=== PATIENT | male | born 1945 | race Caucasian/White ===

== ENCOUNTER 2020-03-19 07:56 | Outpatient (CLI) | payer MEDICARE, SELFPAY ==
[2020-03-19 08:15] LABS: Hemoglobin 15.1 g/dL (14.0-18.0); Mean Corpuscular HGB Conc 33.6 g/dl (32-36); Mean Corpuscular Hemoglobin 30.9 pg (26-34); Mean Platelet Volume 10.3 fl (7.4-10.4); Platelet Count Result 207 k/mm3 (150-375); Red Blood Count 4.89 M/mm3 (4.6-6.20); Red Cell Distribution Width 12.9 % (11.5-14.5); White Blood Count 8.5 K/mm3 (4.5-10.0)
[2020-03-19 09:26] LABS: Alanine Aminotransferase 19 U/L (4-50); Albumin Level 4.1 g/dL (3.5-5.1); Alkaline Phosphatase 74 U/L (38-126); Anion Gap 5 mmol/L (8-16); Aspartate Amino Transferase 34 U/L (17-59); Bilirubin,Total 0.7 mg/dL (0.2-1.3); Blood Urea Nitrogen 14 mg/dL (9-20); Calcium 8.8 mg/dL (8.4-10.2); Carbon Dioxide 28 mmol/L (22-30); Chloride 106 mmol/L (98-107); Cholesterol 192 mg/dL (0-200); Estimated Glomerular Filt Rate 59; Glucose 105 mg/dL (75-110); HDL Direct 42 mg/dL; Potassium 4.3 mmol/L (3.4-5.0); Sodium 139 mmol/L (137-145); Triglycerides 77 mg/dL (<150)
[2020-03-19 09:40] LABS: LDL Cholesterol Direct 123 mg/dL
[2020-03-19 10:18] LABS: Prostate Specific Antigen 3.7 ng/mL (< OR = 4.0)
== END 2020-03-19 07:57 | disposition home or self-care (01) ==
LOC: ANHLAB 07:56
PROVIDERS: PCP Family Medicine; Visit Provider Physician Assistant Medical
DX: I10 Essential (primary) hypertension (principal); E03.9 Hypothyroidism, unspecified; Z12.5 Encounter for screening for malignant neoplasm of prostate; Z13.220 Encounter for screening for lipoid disorders; Z13.6 Encounter for screening for cardiovascular disorders
CPT/HCPCS: 36415; 80053; 80061; 84153; 84443; 85027; G0103

== ENCOUNTER 2020-05-06 13:21 | Outpatient (CLI) | payer MEDICARE, SELFPAY ==
[2020-05-06 14:29] LABS: Free T4 Free Thyroxine 0.99 ng/mL (0.78-2.19)
== END 2020-05-06 13:22 | disposition home or self-care (01) ==
PROVIDERS: PCP Family Medicine; Visit Provider Physician Assistant Medical
DX: E03.9 Hypothyroidism, unspecified (principal)
CPT/HCPCS: 36415; 84439; 84443

== ENCOUNTER 2020-06-17 15:04 | Outpatient (CLI) | payer MEDICARE, SELFPAY ==
[2020-06-17 16:20] LABS: Free T4 Free Thyroxine 1.17 ng/mL (0.78-2.19)
== END 2020-06-17 15:05 | disposition home or self-care (01) ==
LOC: ANHLAB 15:07
PROVIDERS: PCP Family Medicine; Visit Provider Physician Assistant Medical
DX: E03.9 Hypothyroidism, unspecified (principal)
CPT/HCPCS: 36415; 84439; 84443

== ENCOUNTER 2021-01-20 15:31 | Outpatient (CLI) | payer MEDICARE, SELFPAY ==
[2021-01-20 19:19] LABS: Free T4 Free Thyroxine 1.18 ng/mL (0.78-2.19)
== END 2021-01-20 15:32 | disposition home or self-care (01) ==
LOC: ANHLAB 15:33
PROVIDERS: PCP Family Medicine; Visit Provider Nurse Practitioner Family
DX: E03.9 Hypothyroidism, unspecified (principal); I47.1 Supraventricular tachycardia
CPT/HCPCS: 36415; 84439; 84443

== ENCOUNTER 2021-12-16 07:09 | Outpatient (CLI) | payer MEDICARE, SELFPAY ==
[2021-12-16 08:14] LABS: Alanine Aminotransferase 19 U/L (6-50); Alkaline Phosphatase 79 U/L (38-126); Anion Gap 3 mmol/L (8-16); Aspartate Amino Transferase 29 U/L (17-59); Bilirubin,Total 0.6 mg/dL (0.2-1.3); Blood Urea Nitrogen 18 mg/dL (9-20); Calcium 8.5 mg/dL (8.4-10.2); Carbon Dioxide 27 mmol/L (22-30); Chloride 110 mmol/L (98-107); Cholesterol 186 mg/dL (0-200); Estimated Glomerular Filt Rate > 60; Glucose 107 mg/dL (65-110); HDL Direct 46 mg/dL; Sodium 140 mmol/L (137-145); Triglycerides 62 mg/dL (<150)
[2021-12-16 08:25] LABS: LDL Cholesterol Direct 97 mg/dL
[2021-12-16 08:45] LABS: Prostate Specific Antigen 3.8 ng/mL (< OR = 4.0)
[2021-12-16 09:32] LABS: Free T4 Free Thyroxine 1.14 ng/mL (0.78-2.19)
== END 2021-12-16 07:10 | disposition home or self-care (01) ==
LOC: ANHLAB 07:12
PROVIDERS: PCP Family Medicine; Visit Provider Physician Assistant Medical
DX: E03.9 Hypothyroidism, unspecified (principal); I10 Essential (primary) hypertension; E78.5 Hyperlipidemia, unspecified; Z12.5 Encounter for screening for malignant neoplasm of prostate
CPT/HCPCS: 36415; 80053; 80061; 84153; 84439; 84443; G0103

== ENCOUNTER 2022-02-03 12:41 | Outpatient (CLI) | payer MEDICARE, SELFPAY ==
--- NOTE | ~2022-02-03 | US_ITS ---
US scrotum doppler INDICATION: Scrotal varices. History of epididymitis. TECHNIQUE: Testicular sonogram utilizing grayscale and color Doppler FINDINGS: The testes are normal in size and appearance. No focal lesions are seen. The right testes measures 3.6 x 4.8 x 2.6 cm centimeters, and the left testis measures 3.3 x 4.8 x 2 cm cm. There is n ormal vascular flow to both testes. The right and left epididymides appear normal. There is a right epididymal cyst measuring 5 mm. There is a left varicocele measuring 2.6 cm. IMPRESSION: 1. Left varicocele. 2: Right epididymal cyst measuring 5 mm. Reviewed, dictated and finalized at location A.
== END 2022-02-03 12:42 | disposition home or self-care (01) ==
LOC: ANHIMG 12:44
PROVIDERS: PCP Family Medicine; Visit Provider Nurse Practitioner Family
DX: I86.1 Scrotal varices (principal); N50.3 Cyst of epididymis; N50.819 Testicular pain, unspecified; N52.9 Male erectile dysfunction, unspecified
CPT/HCPCS: 76870; 93976

== ENCOUNTER 2022-03-30 07:47 | Outpatient (CLI) | payer MEDICARE, SELFPAY ==
--- NOTE | 2022-03-30 08:01 | ECG_ITS ---
Measurements Intervals [place] Rate: 63 P: 4 WA: 170 QRS: -6 QRSD: 108 T: 145 QT: 391 QTc: 400 Interpretive Statements SINUS RHYTHM LEFT VENTRICULAR HYPERTROPHY AND ST-T CHANGE [ T WAVE ABNORMALITY IN ANTEROLATERAL LEADS- CONSIDER ISCHEMIA ABNORMAL ECG COMPARED TO ECG 01/22/2019 10:05:02 HEART RATE HAS INCREASED LEFT VENTRICULAR HYPERTROPHY NOW PRESENT ST (T WAVE) DEVIATION NOW PRESENT Electronically Signed On 03-30-2022 8:46:15 CDT by Ethan Romano D.O.
== END 2022-03-30 07:48 | disposition home or self-care (01) ==
PROVIDERS: PCP Family Medicine; Visit Provider Urology
DX: Z01.818 Encounter for other preprocedural examination (principal); I11.0 Hypertensive heart disease with heart failure; I86.1 Scrotal varices; R94.31 Abnormal electrocardiogram [ECG] [EKG]; Z51.81 Encounter for therapeutic drug level monitoring; Z79.899 Other long term (current) drug therapy
CPT/HCPCS: 87086; 93005

== ENCOUNTER 2022-04-06 00:19 | Day surgery (SDC) | payer MEDICARE, SELFPAY ==
[2022-03-28 13:45] VITALS: BMI 29.7
--- NOTE | 2022-03-28 13:47 | PC.NURSE ---
Report to the Outpatient Waiting Room, entrance under the green pavilion located off [facility], at time _1230_ on date _[id number]_. OR Time: _230pm_. Time changes happen often and if your time is changed the preop area will call you the afternoon before. - You and your visitor will be asked to self-screen and do not enter if you have any COVID symptoms. - Only one visitor and NO children visitors are allowed at this time. - The patient visitor is requested to leave or wait in car when not with patient due to restrictions. - A mask is required within the hospital. Patients may have clear liquids (water, carbonated beverages, clear teas, apple juice) until 3 hours prior to surgery with a maximum of 20 ounces. - No food from midnight until time of surgery Take the following medications with a SIP of water the morning of surgery: ___Amlodipine, Doxazosin, Finasteride and Levothyroxine____ Medications to discontinue per physician None Date to take last dose Please no make-up, nail bangladeshi, hairspray, perfume, deodorant, or body powder the day of surgery. No jewelry (including any body piercings) or valuables the day of surgery, leave them at home. Please take a shower or bath the night before, or the morning of, surgery with an antibacterial soap. Wear comfortable, loose fitting clothing. - Jewelry must be removed prior to entering the operating room. Rings and piercings that are not removed may be cut off. - The hospital will not accept responsibility for valuables. - Please leave all valuables, including medications, at home the day of surgery. If you are going home after surgery, a licensed otr driver must drive you home. - NO public transportation without another adult. - We recommend that an adult stay with you for 24 hours following discharge. - We also recommend that you do not drive, make important decision, drink alcoholic beverages, or take any drugs that were not prescribed by your health care provider for at least 24 hours after your discharge time. Follow any additional instructions given to you from your surgeon. If you or anyone in your household have experienced Covid symptoms in the past week, please notify your surgeon or the nurse liaison at the phone number below for possible testing. Telephone instructions given to __Patient___and asked if any additional questions and then verbalized understanding. Patient advised to call surgeon office or pre surgery nurse liaison [phone] if any additional questions.
--- NOTE | 2022-04-05 16:14 | WPDANESEPPF ---
Anes - Initial Pre Proc Eval Procedure: Operation Date: 04/06/22 12:00 Proposed Procedures p Left Varicocele Ligation, - Tho Garibay MD s Flexible Cystoscopy - Tho Garibay MD Date/Time: 04/05/22 16:14 Surgeon: Tho Garibay MD Pre Op Diagnosis: left scrotal varices Patient Data Age: 76 Gender: M Height: 1.85 m Weight: 102.3 kg Allergies Allergy/AdvReac Type Severity Reaction Status Date / Time Sulfa (Sulfonamide Allergy Unknown Anaphylaxis Verified 04/06/22 10:33 Antibiotics) sulfanilamide Allergy Unknown Anaphylaxis Verified 04/06/22 10:33 Home Medications Medication Instructions Recorded Confirmed Type amlodipine 5 mg tablet 5 mg PO DAILY #90 tabs 10/31/21 04/06/22 Rx doxazosin 8 mg tablet 8 mg PO DAILY #90 tabs 10/31/21 04/06/22 Rx finasteride 5 mg tablet 5 mg PO DAILY #90 tabs 10/31/21 04/06/22 Rx levothyroxine 50 mcg tablet 50 mcg PO DAILY #90 tabs 01/26/22 04/06/22 Rx ECG: Date of Service: 03/30/22 Procedure(s): CA 12 lead EKG Accession Number(s): [id number] cc: ~ ? Measurements Intervals? [place]? Rate: ? 63 ? P:? 4 SD: ? 170? QRS:? -6 QRSD: ? 108? T:? 145 QT: ? 391? QTc:? 400? Interpretive Statements SINUS RHYTHM LEFT VENTRICULAR HYPERTROPHY AND ST-T CHANGE [ T WAVE ABNORMALITY IN ANTEROLATERAL LEADS- CONSIDER ISCHEMIA ABNORMAL ECG COMPARED TO ECG 01/22/2019 10:05:02 HEART RATE HAS INCREASED LEFT VENTRICULAR HYPERTROPHY NOW PRESENT ST (T WAVE) DEVIATION NOW PRESENT Electronically Signed On 03-30-2022 8:46:15 CDT by Ethan Romano D.O. Patient hx anesthesia problems: none Family hx anesthesia problems: none Results Review: All pre-operative results and documents have been reviewed as part of the pre-operative evaluation. [facility] Past Medical History Medical History (Updated 04/06/22 @ 10:39 by Catarino Mcgraw MD) BMI 29.0-29.9,adult Epididymitis Essential hypertension Overweight with body mass index (BMI) of 28 to 28.9 in adult Premature supraventricular beats PUD (peptic ulcer disease) Umbilical hernia without obstruction and without gangrene Family History Family History Father Hypertension Family history of diabetes mellitus in first degree relative Diabetes mellitus Acute myocardial infarction Malignant neoplasm of prostate Grandparent Carcinoma of colon Mother Family history of kidney disease Other Family history of arthritis Family history of cardiovascular disease Family history of heart disease in male family member before age 55 Social History Social History Smoking packs per day: 2 Smoking cigarettes per day: 40.0 Years smoked: 40 Smoking pack-years: 80.00 Smoking status: Former smoker Tobacco type: cigarettes, pipe and cigars Second hand tobacco smoke exposure: No Smoking end date: 03/28/07 Alcohol intake: current Living arrangements: with family Spiritual care concerns: No Anes - Eval Final PreProcedure Day of Procedure 04/05/22 16:14 Patient weight: obese Heart: regular rate and rhythm Lungs: clear to auscultation and normal air movement Airway: Mallampati scale class II Neurological: alert and oriented Last oral intake: >/= 8 hours ASA classification: III Emergent: no Anesthetic plan: proceed Anesthesia type and monitoring: general LMA Results Review: All pre-operative results and documents have been reviewed as part of the pre-operative evaluation. Informed Consent: The patient's anesthetic plan and its attendant risks and benefits were discussed with the patient/family/POA. Questions were geoffrey
[2022-04-06] VITALS (7 sets, daily range): BP systolic 120–151; BP diastolic 54–80; PULSE 52–67; RESP 10–16; TEMP 36.3–36.4; O2SAT 95–100
[2022-04-06] MEDS: ACETAMINOPHEN 500 MG TABLET 1000 MG PO (10:39)
[2022-04-06] MEDS: LACTATED RINGERS 1,000 ML 30 ML IV CONT ×2 (10:46→14:28)
--- NOTE | 2022-04-06 12:23 | WPDHPUPDATE1 ---
History and Physical Update Update Date/Time: 04/06/22 12:23 History and Physical has been reviewed, including an updated exam of the patient. There are NO changes in the patient's condition. Risks, benefits, and alternatives have been discussed and questions answered. Patient agrees to proceed with procedure.
[2022-04-06] MEDS: ceFAZolin 2 GM/D5W 50 ML 2 GM/50 ML BAG IVPB (12:37)
[2022-04-06] MEDS: BUPIVACAINE HCL 0.5% PF 30 ML VIAL INFILTRATE (14:15)
--- NOTE | 2022-04-06 14:29 | W.PM.PROC2 ---
Procedure Note - Detailed Date of Procedure 04/06/22 Pre-op Diagnosis left scrotal varices Urinary frequency Post-op Diagnosis Same Procedure Performed Left microsurgical varicocele ligation Cystoscopy Surgeon Tho Garibay MD Description of Procedure After informed consent was obtained, the patient was taken to the operating room and given preoperative IV antibiotics. He was induced with anesthesia. He was prepped and draped in a normal sterile fashion. A flexible cystoscope was inserted through the urethra into the bladder. 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 The bladder did have trabeculation. There were no tumors noted. Adjacent to the left ureteral orifice there was an area that appeared to be erythema, however with flattening of the area with the scope this appeared to be a blood vessel adjacent to the ureteral orifice and therefore biopsy not performed. Bladder was then emptied with a red rubber catheter. We made a 3 cm incision over the left external ring. We then bluntly dissected down and identified the spermatic cord and it was delivered through the incision. We then brought up testicle through the incision. The testicle was normal in appearance. We identified multiple gubernacular vessels that were cauterized and ligated. We then returned the testicle to its orthotopic position. We placed the spermatic cord on the operating platform, brought in the operating microscope, and performed operation using 8 to 16 times magnification throughout the case. The external and internal cremasteric fascia were opened. We identified multiple dilated veins. Varicocele veins were identified and duly ligated with titanium hemoclips and 4-0 silk ties. We identified the vas deferens and its surrounding vasculature, veins were ligated and the artery was not injured. The patient did have multiple cremasteric vessels, cremasteric veins were ligated with titanium clips and cremasteric arteries were preserved. We inspected carefully and there were no residual varicocele veins present. We confirmed Doppler flow through arteries with a microscopic Doppler. A total of 9-10 varicocele veins were identified and ligated. We then returned the spermatic cord to the orthotopic position. We irrigated copiously and injected Marcaine. We closed Lindsay?s and deep dermal layer with 3-0 Vicryl suture. We closed the skin with a 4-0 Monocryl subcuticular closure. Surgical glue and scrotal supporter placed. The patient was awakened and taken to the recovery room in stable condition. Estimated Blood Loss 5 Complications No immediate complications Condition Stable Disposition PACU
== END 2022-04-06 16:25 | disposition home or self-care (01) ==
PROVIDERS: PCP Family Medicine; Visit Provider Urology
PROC: (CPT 55530; principal; 2022-04-06 12:00)
PROC: 0TJB8ZZ Inspection of Bladder, Via Natural or Artificial Opening Endoscopic (ICD-10-PCS; CPT 52000; 2022-04-06 12:00)
DX: I86.1 Scrotal varices (principal); R35.0 Frequency of micturition; N40.0 Benign prostatic hyperplasia without lower urinary tract symptoms; N32.89 Other specified disorders of bladder; I10 Essential (primary) hypertension; I49.3 Ventricular premature depolarization; K27.9 Peptic ulcer, site unspecified, unspecified as acute or chronic, without hemorrhage or perforation; Z87.891 Personal history of nicotine dependence; E66.9 Obesity, unspecified; Z68.29 Body mass index [BMI] 29.0-29.9, adult
CPT/HCPCS: 55530; 52000; A9270; C1713; J0690; J1100; J2405; J2440; J2704; J3010; J7030; J7120

== ENCOUNTER 2022-08-31 07:49 | Day surgery (SDC) | payer MEDICARE, SELFPAY ==
[2022-08-24 13:39] VITALS: BMI 30.2
--- NOTE | 2022-08-31 09:00 | WPDHPUPDATE1 ---
History and Physical Update Update Date/Time: 08/31/22 09:00 History and Physical has been reviewed, including an updated exam of the patient. There are NO changes in the patient's condition. Risks, benefits, and alternatives have been discussed and questions answered. Patient agrees to proceed with procedure.
[2022-08-31 11:38] VITALS: BP 163/104; PULSE 58; RESP 16; O2SAT 97
[2022-08-31] MEDS: TETRACAINE HCL 0.5% OPHTH SOLN 4 ML BTL 1 DROP AFFCTD EYE ×3 (11:41→11:51)
[2022-08-31] MEDS: BRIMONIDINE TARTRATE 0.2% OP SOLN 5 ML BTL 1 DROP AFFCTD EYE (12:02)
--- NOTE | 2022-08-31 12:59 | W.PM.PROC2 ---
Procedure Note - Detailed Date of Procedure 08/31/22 Pre-op Diagnosis Posterior Capsular Opacification-Right Eye Post-op Diagnosis Same Procedure Performed YAG Laser Capsulotomy [RIGHT] eye Surgeon Cristian King MD Anesthesia Other (Topical) Description of Procedure After appropriate discussion, consent and topical anesthesia, the patient was placed in front of the laser. All settings were checked. The laser procedure was then performed. The patient tolerated the procedure well. Power Level: [4.0] Number of Pulses: 12 Complications None Condition Stable Disposition Same day
== END 2022-08-31 12:14 | disposition home or self-care (01) ==
PROVIDERS: Visit Provider Student in an Organized Health Care Education/Training Program
PROC: (CPT 66821; principal; 2022-08-31 11:45)
DX: H26.491 Other secondary cataract, right eye (principal)
CPT/HCPCS: 66821

== ENCOUNTER 2023-05-30 07:15 | Outpatient (CLI) | payer MEDICARE, SELFPAY ==
[2023-05-30 07:47] LABS: Basophils Percent Auto 0.5 % (0.2-1.2); Eosinophils Absolute Auto 0.3 K/mm3 (0-0.3); Eosinophils Percent Auto 4.3 % (0-4.4); Hematocrit 45.1 % (42.0-52.0); Hemoglobin 14.9 g/dL (14.0-18.0); Immature Granulocyte Absolute 0.02 K/mm3 (0.00-0.031); Immature Granulocyte Percent A 0.3 % (0-0.5); Lymphocytes Absolute Auto 1.48 K/mm3 (0.9-3.2); Lymphocytes Percent Auto 23.8 % (18.3-44.2); Mean Corpuscular Hemoglobin 31.4 pg (26-34); Mean Corpuscular Volume 95.1 fl (80-100); Mean Platelet Volume 10.6 fl (7.4-10.4); Monocytes Absolute Auto 0.7 K/mm3 (0.1-0.6); Monocytes Percent Auto 10.9 % (2.6-8.5); Neutrophils Absolute Auto 3.8 K/mm3 (1.3-6.7); Neutrophils Percent Auto 60.2 % (45.5-73.1); Platelet Count Result 186 k/mm3 (150-375); Red Blood Count 4.74 M/mm3 (4.6-6.20); Red Cell Distribution Width 13.1 % (11.5-14.5); White Blood Count 6.2 K/mm3 (4.5-10.0)
[2023-05-30 08:07] LABS: Alanine Aminotransferase 20 U/L (6-50); Albumin Level 4.2 g/dL (3.5-5.1); Alkaline Phosphatase 74 U/L (38-126); Anion Gap 9 mmol/L (8-16); Aspartate Amino Transferase 29 U/L (17-59); Bilirubin,Total 0.5 mg/dL (0.2-1.3); Blood Urea Nitrogen 23 mg/dL (9-20); Calcium 8.8 mg/dL (8.4-10.2); Carbon Dioxide 26 mmol/L (22-30); Chloride 107 mmol/L (98-107); Cholesterol 195 mg/dL (0-200); Estimated Glomerular Filt Rate > 60; Glucose 107 mg/dL (65-110); HDL Direct 49 mg/dL; Potassium 4.2 mmol/L (3.4-5.0); Sodium 142 mmol/L (137-145); Triglycerides 51 mg/dL (<150)
[2023-05-30 08:18] LABS: LDL Cholesterol Direct 111 mg/dL
[2023-05-30 08:27] LABS: Prostate Specific Antigen 4.6 ng/mL (< OR = 4.0)
== END 2023-05-30 07:16 | disposition home or self-care (01) ==
PROVIDERS: PCP Family Medicine; Visit Provider Physician Assistant Medical
DX: Z12.5 Encounter for screening for malignant neoplasm of prostate (principal); I10 Essential (primary) hypertension; E03.9 Hypothyroidism, unspecified; E78.5 Hyperlipidemia, unspecified
CPT/HCPCS: 36415; 80053; 80061; 84153; 84443; 85025; G0103

== ENCOUNTER 2024-09-12 08:27 | Outpatient (CLI) | payer MEDICARE, SELFPAY ==
--- OUTSIDE RECORDS SUMMARY | 2024-09-12 08:45 | XMS_ITS | Clinical Summary ---
Author Organization [facility] Address [address] [place] [address] Care Team Providers Care Mud Mixer Operator Name Role Phone Unavailable Primary Care Provider Unavailabl e Immunizations Immunization Administration Dates Next Due Covid-19, Mrna, Lnp-s, Pf, 30 Mcg/0.3 Ml Dose (P fizer) 04/05/2021 Social History Tobacco Use Types Packs/Day Years Used Date Smoking Tobacco: Never Assessed Sex and Gender Information Value Date Recorded Sex Assigned at Not on file Legal Sex Male 12:04 PM CDT Gender Identity Not on file Sexual Orientation Not on file Plan of Treatment Health Maintenance Due Date Last Done Comments Hepatitis C Virus (HCV) Screening 1945 Zoster Immunization (2 of 3) 08/18/2015 06/23/2015 Respiratory Syncytial Virus (RSV) Immunization (Adult) (1 - 1-dose 75+ series) 2019 Pneumococcal Immunization (50+ years) (2 of 2 - PPSV23) 12/27/2019 12/26/2018 Influenza Immunization (#1) 03/10/202402/08, 05/15/2019, 04/18/2018, Additional history exists SARS-COV-2 Immunization ( season) 2024 04/05/2021, 09/22/2020, 09/01/2020 DTaP/Tdap/Td Immunization Discontinued 01/03/2019 TdaP Immunization Completed 01/03/2019 Hepatitis B Immunization Aged Out No longer eligible based on patient's age to complete this topic Meningococcal Immunization (ACWY) Aged Out No longer eligible based on patient's age to complete this topic Rotavirus Immunization Aged Out No lo nger eligible based on patient's age to complete this topic
--- OUTSIDE RECORDS SUMMARY | 2024-09-12 08:45 | XMS_ITS | Clinical Summary ---
Author Organization [facility] Address [address] [place] [id number] Care Team Providers Care Application Trainer Name Role Phone Unavailable Primary Care Provider Unavailabl e Social History Tobacco Use Types Packs/Day Years Used Date Smoking Tobacco: Never Assessed Sex and Gender Information Value Date Recorded Sex Assigned at Not on file Legal Sex Male 4:38 PM CDT Gender Identity Not on file Sexual Orientation Not on file Last Filed Vital Signs Vital Sign Reading Time Taken Comments Blood Pressure 146/82 01/20/2014 9:00 AM CDT Pulse - - Temperature - - Respiratory Rate - - Oxygen Saturation - - Inhaled Oxygen Concentration - - Weight 101.6 kg (224 lb) 01/20/2014 9:00 AM CDT Height 185.4 cm (6' 1 ) 01/20/2014 9:00 AM CDT Body Mass Index 29.55 01/20/2014 9:00 AM CDT Plan of Treatment Health Maintenance Due Date Last Done Comments Hepatitis C 1963 DTaP, Tdap and Td Vaccines ( 1 - Tdap) 1963 Zoster Vaccines (1 of 2) 1994 Pneumococcal Vaccine: 65+ Ye ars (1 of 1 - PCV) 2009 RSV Immunization or 60+ Years (1 - 1-dose 75+ series) 2019 COVID-19 Vaccine (2023-2 5 season) 2024 Influenza Adult (#1) 2024 Colorectal Cancer Screening Colonoscopy (10 Years) Discontinued 10/08/2008 Meningococcal B Vaccine Aged Out No l onger eligible based on patient's age to complete this topic Meningococcal Vaccine Aged Out No emilie irma eligible based on patient's age to complete this topic RSV Immunizations Under 20 Months Aged Out No longer eligible based on patient's age to complete this topic Procedures Procedure Name Priority Date/Time Associated Diagnosis Comments COLONOSCOPY Routine 10/08/2008 12:00 AM CDT from Last 3 Months or Most Recently Relevant to Health Maintenance Results * Colonoscopy (10/08/2008 12:00 AM CDT) 10/08/2008 10/08/2008 Narrative TOUCHWORKS TO EPIC CONVERSION - 10/08/2008 12:00 AM CDT Documented hx of procedure Procedure Note , Generic Conversion, - 09/27/2018 Documented hx of procedure Generic Conversion Md [facility] PROCEDURE ORDERABLES Final Result TOUCHWORKS TO EPIC CONVERSION from Last 3 Months or Most Recently Relevant to Health Maintenance
[2024-09-12 09:42] LABS: Prostate Specific Antigen 6.3 ng/mL (< OR = 4.0)
== END 2024-09-12 08:28 | disposition home or self-care (01) ==
LOC: ANHLAB 08:30
PROVIDERS: PCP Family Medicine; Visit Provider Nurse Practitioner Family
DX: R97.20 Elevated prostate specific antigen [PSA] (principal)
CPT/HCPCS: 36415; 84153

== ENCOUNTER 2025-01-23 07:06 | Outpatient (CLI) | payer MEDICARE, SELFPAY ==
--- OUTSIDE RECORDS SUMMARY | 2025-01-23 07:11 | XMS_ITS | Clinical Summary ---
Author Organization [facility] Address [address] [place] [address] Care Team Providers Care Bulk Cooler Installer Name Role Phone Unavailable Primary Care Provider [...] (2 of 2 - PPSV23) 12/27/2019 12/26/2018 SARS-COV-2 Immunization ( - season) 2024 04/05/2021, 09/22/2020, 09/01/2020 Influenza Immunization (#1) 03/10/202502/08, 05/15/2019, 04/18/2018, Additional history exists DTaP/Tdap/Td Immunization Discontinued 01/03/2019 TdaP Immunization Completed 01/03/2019 Hepatitis B Immunization Aged Out No longer eligible based on patient's age to complete this topic Human Papillomavirus (HPV) Immunization Aged Out No longer eligible based on patient's age to complete this topic Meningococcal Immunization (ACWY) Aged Out No longer eligible based on patient's age to complete this topic Rotavirus Immunization Aged Out No lo nger eligible based on patient's age to complete this topic
--- OUTSIDE RECORDS SUMMARY | 2025-01-23 07:11 | XMS_ITS | Clinical Summary ---
Author Organization [facility] Address [address] [place] [id number] Care Team Providers Care Field Coil Winder Name Role Phone Unavailable Primary Care Provider [...] 9:00 AM CDT Height 185.4 cm (6' 1) 01/20/2014 9:00 AM CDT Body Mass Index 29.55 01/20/2014 9:00 AM CDT Plan of Treatment Health Maintenance Due Date Last Done Comments DTaP, Tdap and Td Vaccines ( 1 - Tdap) 1964 Pneumococcal Vaccine: 50+ Ye ars (1 of 1 - PCV) 1994 Zoster Vaccines (1 of 2) 1994 RSV Immunization or 60+ Years (1 - 1-dose 75+ series) 2019 COVID-19 Vaccine ( - 2023-2 5 season) 2024 Colorectal Cancer Screening Colonoscopy (10 Years) [...] Documented hx of procedure Procedure Note , Rosita Conversion, - 09/27/2018 Documented hx of procedure us Generic Conversion Md [facility] PROCEDURE ORDERABLES Final Result TOUCHWORKS TO EPIC CONVERSION from Last 3 Months or Most Recently Relevant to Health Maintenance
[2025-01-23 07:55] LABS: Hematocrit 44.1 % (42.0-52.0); Hemoglobin 14.7 g/dL (14.0-18.0); Immature Granulocyte Percent A 0.4 % (0-0.5); Lymphocytes Absolute Auto 1.54 K/mm3 (0.9-3.2); Mean Corpuscular HGB Conc 33.3 g/dl (32-36); Mean Corpuscular Hemoglobin 31.3 pg (26-34); Mean Corpuscular Volume 94.0 fl (80-100); Nucleated Red Blood Cells Absolute Auto 0.000 K/mm3 (0.0-0.012); Nucleated Red Blood Cells Perc 0.0 % (0.0-0.2); Platelet Count Result 191 k/mm3 (150-375); Red Blood Count 4.69 M/mm3 (4.6-6.20); White Blood Count 8.4 K/mm3 (4.5-10.0)
[2025-01-23 08:21] LABS: Alanine Aminotransferase 34 U/L (6-50); Albumin Level 4.0 g/dL (3.5-5.1); Alkaline Phosphatase 64 U/L (38-126); Anion Gap 5 mmol/L (4-12); Aspartate Amino Transferase 45 U/L (17-59); Bilirubin,Total 0.7 mg/dL (0.2-1.3); Blood Urea Nitrogen 25 mg/dL (9-20); Calcium 9.1 mg/dL (8.4-10.2); Carbon Dioxide 28 mmol/L (22-30); Chloride 106 mmol/L (98-107); Cholesterol 211 mg/dL (0-200); Estimated Glomerular Filt Rate > 60; Glucose 107 mg/dL (65-110); HDL Direct 47 mg/dL; Potassium 4.4 mmol/L (3.4-5.0); Sodium 139 mmol/L (137-145); Total Protein 6.9 g/dL (6.3-8.2); Triglycerides 85 mg/dL (<150)
[2025-01-23 09:04] LABS: Prostate Specific Antigen 6.2 ng/mL (< OR = 4.0); Thyroid Stimulating Hormone 5.080 uIU/mL (0.465-4.680)
== END 2025-01-23 07:07 | disposition home or self-care (01) ==
PROVIDERS: PCP Family Medicine; Visit Provider Physician Assistant Medical
DX: I10 Essential (primary) hypertension (principal); Z12.5 Encounter for screening for malignant neoplasm of prostate; E03.9 Hypothyroidism, unspecified; E78.5 Hyperlipidemia, unspecified
CPT/HCPCS: 36415; 80053; 80061; 84153; 84443; 85025; G0103